=== PATIENT | male | born 1985 | race Two or more races ===

== ENCOUNTER 2018-01-22 02:17 | Inpatient (IN) | payer OTHER ==
[~2018-01-22] VITALS: Ht 175.3 cm; Wt 85.3 kg
[2018-01-22 02:30] VITALS: BP 105/67
--- NOTE | 2018-01-22 02:30 | NUR ---
RN NOTES: RECEIVED PT FROM [facility]. PT IS A/OX4. PT IS ON ROOM AIR AND TOLERATING WELL. PT HAS IV ON L AC #16G AND IS PATENT AND INTACT. CURRENTLY S/L. INFORMED PT NOT TO HAVE ANYTHING TO EAT OR DRINK UNTIL ADMITTING ORDERS ARE PUT IN. CALL LIGHT WITHIN PT'S REACH. BED KEPT IN LOW, LOCKED POSITION, AND SIDE RAILS X 2UP. WILL CONTINUE TO MONITOR PT.
[2018-01-22 03:00] VITALS: BP 115/67
--- NOTE | 2018-01-22 03:00 | NUR ---
RN NOTES: PAGED [facility].
--- NOTE | 2018-01-22 03:26 | NUR ---
RN NOTES: SPOKE WITH DR. PADILLA AND INFORMED HER THAT PT IS HERE AND AWAITING FOR ADMITTING ORDERS.
--- NOTE | 2018-01-22 03:58 | NUR ---
CHIP SILO TENDER NOTES: NON-ADMIN ROCEPHIN 1G . PER [place] [facility] REPORT AND [facility] DOCUMENTATION, PT RECEIVED [id number] ON 01/21/18 AT 2154.
[2018-01-22] MEDS ORDERED: ONDANSETRON HCL/PF 4 MG/2 ML VIAL IVP PRN (04:00)
[2018-01-22] MEDS ORDERED: MORPHINE SULFATE INJ 2 MG/ML DISP.SYRIN IV PRN (04:00)
[2018-01-22] MEDS ORDERED: CEFTRIAXONE 1 G in IV D5W 50 ML IV SCH (04:00)
[2018-01-22] MEDS ORDERED: ZOLPIDEM TARTRATE 5 MG TABLET PO PRN (04:00)
[2018-01-22] MEDS ORDERED: Z GUARD REMEDY 2 OZ OINT TP PRN (04:00)
[2018-01-22] MEDS ORDERED: ALBUTEROL FS 2.5 MG/3 ML VIAL.NEB NEB PRN (04:00)
[2018-01-22] MEDS ORDERED: MAGNESIUM HYDROXIDE 30 ML UDC PO PRN (04:00)
[2018-01-22] MEDS ORDERED: MAG HYDROX/AL HYDROX/SIMETH 30 ML UDC PO PRN (04:00)
[2018-01-22] MEDS: IV NS 0.9% 1,000 ML IV PRN ×2 (04:09→21:58)
--- NOTE | 2018-01-22 05:28 | NUR ---
SCRUB WOMAN NOTES: NON-ADMIN ZITHROMAX. PER [facility] REPORT AND [facility] DOCUMENTATION, PT RECEIVED AZITHROMAX 500MG IV ON 01/21/18 AT 2140PM.
[2018-01-22 05:55] VITALS: BP 114/66
[2018-01-22] MEDS ORDERED: AZITHROMYCIN 250 MG TABLET PO SCH (06:00)
[2018-01-22] MEDS: HYDROCODONE/APAP 5/325MG 1 EACH TABLET PO PRN ×2 (06:06→15:37)
--- NOTE | 2018-01-22 06:36 | NUR ---
OLIVE PITTER NOTES: SPOKE WITH NICOLAS FROM PHARMACY. INFORMED HIM THAT PT GOT AZITHROMAX AND ROCEPHIN AT [facility] ON 01/21/182139 AND 2153. HE WILL ADJUST TIME.
--- NOTE | 2018-01-22 06:58 | NUR ---
HYDRAULIC ASSEMBLER CLOSING NOTES: ALL NEEDS WERE ATTENDED AND ANTICIPATED FOR. PT ON ROOM AIR AND TOLERATING WELL. PT HAS 02 SUPP AT BEDSIDE. PT ON TELE BOX. READING SHOWS [id number]. PT HAS IV ON L AC #16G AND IS BEING INFUSED WITH NS AT 75ML/HR. NO S/S OF DISTRESS NOTED. PT RESTING IN BED AT THIS TIME. CALL LIGHT WITHIN PT'S REACH. BED KEPT IN LOW, LOCKED POSITION, AND SIDE RAILS X 2UP. WILL ENDORSE TO AM NURSE FOR JUJU.
[2018-01-22 07:03] LABS: BASOPHILS % (AUTO) 0.2 % (0.0-2.0); EOSINOPHILS % (AUTO) 0.2 % (0.0-6.0); HEMATOCRIT 34 % (39-51); HEMOGLOBIN 11.3 g/dL (13.5-17.5); LYMPHOCYTES # (AUTO) 1.7 /CMM (0.8-4.8); LYMPHOCYTES % (AUTO) 13.7 % (20.0-44.0); MEAN CORPUSCULAR HEMOGLOBIN 31 PG (26.0-33.0); MEAN CORPUSCULAR HGB CONC 34 g/dl (31.0-36.0); MEAN CORPUSCULAR VOLUME 93 fL (80-96); MONOCYTES # (AUTO) 0.7 /CMM (0.1-1.30); MONOCYTES % (AUTO) 5.3 % (2.0-12.0); NEUTROPHILS % (AUTO) 80.6 % (43.0-81.0); PLATELET COUNT (AUTO) 482 /CMM (150-450); RDW COEFFICIENT OF VARIATION 14.6 (11.5-15.0); RED BLOOD CELL COUNT(AUTO) 3.62 MIL/uL (4.5-6.0); WHITE BLOOD COUNT (AUTO) 12.4 K/uL (4.3-11.0)
--- NOTE | 2018-01-22 07:25 | NUR ---
Tele/RN - Assessment Patient in bed awake, A/O x 4, denies pain, no c/o SOB, no evidence of resp. distress noted, tolerating room air, tele shows SR. IVF NS at 75 ml/hr infusing well on the LAC with no s/s of infiltration. Skin is intact. Patient independent with bed mobility and ambulatory with steady gait. All needs attended and met. Will continue with current plan of care.
[2018-01-22 07:33] LABS: CALCIUM, SERUM 8.5 mg/dL (8.5-10.1); CREATININE 0.9 mg/dL (0.6-1.3); MAGNESIUM 1.8 mg/dL (1.8-2.4); PHOSPHORUS 2.5 mg/dL (2.5-4.9); POTASSIUM 3.9 mmol/L (3.5-5.1)
[2018-01-22 08:00] VITALS: BP 96/46
[2018-01-22] MEDS ORDERED: IBUP-1955 PO (08:33)
[2018-01-22] MEDS ORDERED: CEFP100T9 PO (08:33)
[2018-01-22] MEDS ORDERED: PERM60CR6 TP (08:37)
[2018-01-22] MEDS ORDERED: DIPH25TA25 PO (08:37)
[2018-01-22] MEDS ORDERED: METR500T4 PO (08:37)
[2018-01-22] MEDS ORDERED: IBUPROFEN 600 MG TABLET PO PRN (10:00)
[2018-01-22] MEDS ORDERED: CEFPODOXIME PROXETIL 200 MG PO SCH (10:00)
[2018-01-22] MEDS ORDERED: METRONIDAZOLE 500 MG TABLET PO SCH ×3 (10:00→10:04)
[2018-01-22] MEDS ORDERED: diphenhydrAMINE HCL 50 MG CAPSULE PO PRN (10:30)
[2018-01-22] MEDS: METRONIDAZOLE 500 MG TABLET PO SCH ×2 (10:33→21:06)
[2018-01-22] MEDS ORDERED: IOHEXOL-300 100 ML VIAL IV ONE (15:12)
[2018-01-22 16:00] VITALS: BP 115/56
[2018-01-22] MEDS: ACETAMINOPHEN 325 MG TABLET PO PRN (17:13)
[2018-01-22] MEDS: LACTOBACILLUS RHAMNOSUS GG 1 EACH CAP.SPRINK PO SCH (17:13)
--- NOTE | 2018-01-22 17:15 | NUR ---
Tele/RN - Elevated temp Patient noted with temp 102.9F, ice pack applied and tylenol 650 mg po given. JAGDISH Anderson made aware.
--- NOTE | 2018-01-22 19:15 | NUR ---
M/S RN - End Notes Tele was discontinued by Dr. Zaidi, temperature 98.9F, sputum fungal culture/smear ordered, CT chest with contrast shows RLL infiltrate. Patient remain on IVF NS at 75 ml/hr for hydration. All needs attended and met. Will continue with current medical management.
[2018-01-22 20:00] VITALS: BP 119/85
[2018-01-22] MEDS: AZITHROMYCIN 250 MG TABLET PO SCH (21:06)
[2018-01-22] MEDS: CEFTRIAXONE 1 G in IV D5W 50 ML IV SCH (21:36)
[2018-01-23] MEDS: ACETAMINOPHEN 325 MG TABLET PO PRN (00:21)
[2018-01-23] MEDS ORDERED: IV NS 0.9% 1,000 ML IV PRN (01:47)
--- NOTE | 2018-01-23 06:06 | NUR ---
MS RN NOTES AWAKE & RESPONSIVE. NOT IN ANY DISTRESS. NO SOB NOTED. DENIES ANY PAIN OR DISCOMFORT AT THIS TIME. WITH IVF INFUSING WELL. MONITORED ACCORDINGLY. CALL LIGHT WITHIN REACH. BED IN LOWEST POSITION. SR UP X 2 FOR SAFETY. WILL ENDORSE TO NEXT SHIFT.
[2018-01-23 06:17] LABS: BASOPHILS # (AUTO) 0.1 /CMM (0.0-0.2); BASOPHILS % (AUTO) 0.6 % (0.0-2.0); EOSINOPHILS % (AUTO) 0.4 % (0.0-6.0); HEMATOCRIT 36 % (39-51); LYMPHOCYTES # (AUTO) 1.7 /CMM (0.8-4.8); LYMPHOCYTES % (AUTO) 14.2 % (20.0-44.0); MEAN CORPUSCULAR HEMOGLOBIN 31 PG (26.0-33.0); MEAN CORPUSCULAR HGB CONC 33 g/dl (31.0-36.0); MEAN CORPUSCULAR VOLUME 93 fL (80-96); MONOCYTES % (AUTO) 7.9 % (2.0-12.0); NEUTROPHILS # (AUTO) 9.5 /CMM (1.8-8.9); NEUTROPHILS % (AUTO) 76.9 % (43.0-81.0); PLATELET COUNT (AUTO) 500 /CMM (150-450); RDW COEFFICIENT OF VARIATION 14.5 (11.5-15.0); WHITE BLOOD COUNT (AUTO) 12.3 K/uL (4.3-11.0)
[2018-01-23 06:33] LABS: CALCIUM, SERUM 8.8 mg/dL (8.5-10.1); MAGNESIUM 2.1 mg/dL (1.8-2.4); PHOSPHORUS 3.7 mg/dL (2.5-4.9); POTASSIUM 3.8 mmol/L (3.5-5.1)
[2018-01-23 06:57] LABS: THYROID STIMULATING HORMONE 2.137 uIU/mL (0.358-3.74)
--- NOTE | 2018-01-23 07:30 | NUR ---
M/S RN - Assessment Patient in bed awake, A/O x 4, denies pain, no c/o SOB, no evidence of resp. distress noted, tolerating room air, no febrile episode last night. IVF NS at 100 ml/hr infusing well on the right hand with no s/s of infiltration. Skin is intact. Patient independent with bed mobility and ambulatory with steady gait. All needs attended and met. Will continue with current plan of care.
[2018-01-23 08:00] VITALS: BP 109/68
[2018-01-23] MEDS: METRONIDAZOLE 500 MG TABLET PO SCH ×2 (08:10→21:16)
[2018-01-23] MEDS: LACTOBACILLUS RHAMNOSUS GG 1 EACH CAP.SPRINK PO SCH ×2 (08:10→16:28)
--- NOTE | 2018-01-23 10:00 | NUR ---
M/S RN - Consent Patient signed consent for ultrasound guided thoracentesis of right lung. All orders of Dr. Capps were noted and carried out.
--- NOTE | 2018-01-23 11:11 | NUR ---
Social service consult requested by JAGDISH Murray for homelessness and polysubstance abuse. Pt. is a 32 year old male who was admitted to [facility] for cellulitis. SW met with pt. bedside. Pt. is alert and oriented x 4. Pt. was cooperative during the assessment. Pt. appears well-groomed. Pt. states that he is homeless and has been homeless for the past two months. Prior to being homeless, pt. was renting a room in [employer]. Pt. states he works in construction. SW offered pt. homeless assisted resources, however pt. declined stating he will find a place to live. Pt. denies any depression, anxiety etc. Pt. has had no psychiatric hospitalizations in the past. Pt. denies alcohol use. Pt. states he smokes marijuana daily. Pt. stated he was addicted to methamphetamines but hasn't used in 8 months. No social service needs are required at this time. SW is available, if needed.
--- NOTE | 2018-01-23 11:45 | NUR ---
M/S RN - Notes Thoracentesis was not performed due to no evidence of effusion. Dr. Capps notified.
[2018-01-23] MEDS: HYDROCODONE/APAP 5/325MG 1 EACH TABLET PO PRN ×2 (14:11→21:18)
[2018-01-23 15:23] LABS: APPEARANCE,URINE SL CLOUDY (CLEAR); BILIRUBIN,URINE NEGATIVE (NEGATIVE); BLOOD, URINE NEGATIVE Ery/uL (NEGATIVE); COLOR,URINE YELLOW (YELLOW); KETONES,URINE NEGATIVE (NEGATIVE); LEUKOCYTE ESTERASE ,URINE NEGATIVE (NEGATIVE); NITRITE, URINE NEGATIVE (NEGATIVE); PH,URINE 7.5 (5.0-8.0); PROTEIN,URINE NEGATIVE (NEGATIVE); UGLUCOSE NEGATIVE (NEGATIVE); UROBILINOGEN,URINE 0.2 EU/dL (0.2)
[2018-01-23 16:00] VITALS: BP 120/61
--- NOTE | 2018-01-23 18:45 | NUR ---
M/S RN - End Notes Patient states feeling better, remain afebrile, no c/o SOB, on room air, VSS. IVF maintained for hydration. All needs attended and met. Will continue with current medical management.
--- NOTE | 2018-01-23 19:35 | NUR ---
RN OPENING NOTES [facility]. FOUND Pt AWAKE, RESTING IN BED, WATCHING TV. NO S/S OF ACUTE DISTRESS OR SOB NOTED. NO C/O PAIN AT THIS TIME. Pt IS A/OX4, VERBAL, ABLE TO MAKE NEEDS KNOWN. IV ACCESS ON R HAND#22G, IVF NS @100ML/HR. SAFETY MEASURES IN PLACE. BED LOW, LOCKED, HOB ELEVATED, SIDE RAILS UP, CALL LIGHT AND BEDSIDE TABLE WITHIN REACH. WILL CONTINUE TO MONITOR Pt THROUGHOUT THE NIGHT FOR SAFETY.
[2018-01-23 20:00] VITALS: BP 130/80
[2018-01-23] MEDS: AZITHROMYCIN 250 MG TABLET PO SCH (21:16)
[2018-01-23] MEDS: CEFTRIAXONE 1 G in IV D5W 50 ML IV SCH (21:16)
[2018-01-24] MEDS: HYDROCODONE/APAP 5/325MG 1 EACH TABLET PO PRN (05:45)
--- NOTE | 2018-01-24 06:30 | NUR ---
RN CLOSING NOTES NO SIGNIFICANT CHANGES IN Pt's CONDITION. Pt REMAINS STABLE AT THIS TIME. NO S/S OF ACUTE DISTRESS OR SOB NOTED DURING THE NIGHT. ALL NEEDS MET AND ATTENDED TO. ALL ORDERED MEDS GIVEN. SAFETY MEASURES IN PLACE. BED LOW, LOCKED, HOB ELEVATED, SIDE RAILS UP, CALL LIGHT AND BEDSIDE TABLE WITHIN REACH. Addendum: 01/24/18 at 0633 by KIRSTY PINA RN WILL ENDORSE TO SAULO RN FOR Pt's JUJU.
[2018-01-24 06:35] LABS: BASOPHILS % (AUTO) 0.3 % (0.0-2.0); EOSINOPHILS % (AUTO) 0.5 % (0.0-6.0); HEMATOCRIT 36 % (39-51); HEMOGLOBIN 12.2 g/dL (13.5-17.5); LYMPHOCYTES # (AUTO) 1.9 /CMM (0.8-4.8); MEAN CORPUSCULAR HEMOGLOBIN 31 PG (26.0-33.0); MEAN CORPUSCULAR HGB CONC 34 g/dl (31.0-36.0); MEAN CORPUSCULAR VOLUME 92 fL (80-96); MONOCYTES # (AUTO) 0.9 /CMM (0.1-1.30); MONOCYTES % (AUTO) 8.1 % (2.0-12.0); NEUTROPHILS # (AUTO) 7.9 /CMM (1.8-8.9); NEUTROPHILS % (AUTO) 73.1 % (43.0-81.0); PLATELET COUNT (AUTO) 556 /CMM (150-450); RDW COEFFICIENT OF VARIATION 14.8 (11.5-15.0); RED BLOOD CELL COUNT(AUTO) 3.93 MIL/uL (4.5-6.0); WHITE BLOOD COUNT (AUTO) 10.8 K/uL (4.3-11.0)
[2018-01-24 06:52] LABS: PHOSPHORUS 3.9 mg/dL (2.5-4.9); POTASSIUM 3.9 mmol/L (3.5-5.1)
--- NOTE | 2018-01-24 07:39 | NUR ---
RN OPENING NOTES PT. IS IN BED SLEEPING, BREATHING UNLABORED, AND EVENLY ON ROOM AIR. NO SOB, AND NO S/S OF ACUTE DISTRESS. IV FLUIDS RUNNING AT 100 ML/HR. BED IS IN LOWEST AND LOCKED POSITION. 2 SIDE RAILS UP. CALL LIGHT WITHIN REACH. WILL CONTINUE TO ASSESS AND MONITOR.
[2018-01-24 08:00] VITALS: BP 110/62
[2018-01-24] MEDS: LACTOBACILLUS RHAMNOSUS GG 1 EACH CAP.SPRINK PO SCH (08:12)
[2018-01-24] MEDS: METRONIDAZOLE 500 MG TABLET PO SCH (08:12)
[2018-01-24] MEDS ORDERED: METR500T PO (12:10)
[2018-01-24] MEDS ORDERED: LEVO750T21 PO (12:10)
[2018-01-24] MEDS: ACETAMINOPHEN 325 MG TABLET PO PRN (12:13)
--- NOTE | 2018-01-24 15:47 | NUR ---
DISCHARGE PT. WAS DISCHARGED IN STABLE CONDITION. DISCHARGE INSTRUCTIONS WITH EDUCATION WAS PROVIDED AND PT. VERBALIZED UNDERSTANDING. BELONGINGS LIST WAS CHECKED AND SIGNED. ID BAND AND IV WAS REMOVED WITHOUT COMPLICATIONS. PRESCRIPTION WAS GIVEN TO PT. WITH EDUCATION AND PT. VERBALIZED UNDERSTANDING. PT. REPORTED HE DID NOT WANT TO GO TO A DETENTION AT THIS TIME, BUT WILL CHECK THE LIST OF RESOURCES AVAILABLE TO HIM GIVEN BY THE HEEL SORTER. PT. WAS OFFERED TO TAKE JUICE BOXES, AND ICE WATER WITH HIM, BUT PT. REFUSED.
[2018-01-24 15:52] VITALS: BP 113/67
== END 2018-01-24 15:30 | disposition home or self-care (01) | DRG 720 ==
LOC: TELE 02:17 → MED 21:01
PROVIDERS: ADMIT Internal Medicine; ATTEND Internal Medicine
DX: A41.9 Sepsis, unspecified organism (principal); E87.2 Acidosis; J90 Pleural effusion, not elsewhere classified; J18.9 Pneumonia, unspecified organism; Z59.0 Homelessness; D63.8 Anemia in other chronic diseases classified elsewhere; D47.3 Essential (hemorrhagic) thrombocythemia; F19.10 Other psychoactive substance abuse, uncomplicated
CPT/HCPCS: 36415; 71046; 71260-TC; 76942-TC; 80048-TC; 80061-TC; 80305; 81000-TC; 83540-TC; 83605-TC; 83735-TC; 84100-TC; 84443-TC; 85025-TC; 87040-TC; 87081-TC; 87086-TC; J0696; J7030; J7060; Q9967; Z7610